=== PATIENT | male | born 1990 | race Hispanic/Latino ===

== ENCOUNTER 2018-08-17 13:02 | Emergency (ER) | payer OTHER ==
[2018-08-17 13:11] VITALS: BP 118/74; PULSE 64; RESP 18; TEMP 97.8; O2SAT 99
--- NOTE | 2018-08-17 14:19 | RAD ---
PROCEDURE: Left Foot Radiographs. HISTORY: left foot pain COMPARISON: None available. FINDINGS: BONES: No acute displaced fracture. JOINTS: No dislocation. SOFT TISSUES: Unremarkable. No evidence of radiopaque foreign body. OTHER FINDINGS: None. IMPRESSION: No acute displaced fracture, dislocation, or significant joint effusion identified. If symptoms persist, or if there is continued clinical concern, x-ray follow-up in 7-10 days should be considered.
--- NOTE | 2018-08-17 14:29 | C.PDOC ---
History Of Present Illness 28 y/o male presents to the ER complaining of left foot pain which began after he ran a marathon 2 days ago. Patient states that he has pain mainly in the outer aspect of the foot. Patient reports that there is no other joint involvement. Denies having direct trauma, falls, injuries, weakness, and numbness. Time Seen by Provider: 08/17/18 13:14 Chief Complaint (Nursing): Lower Extremity Problem/Injury History Per: Patient History/Exam Limitations: no limitations Onset/Duration Of Symptoms: Days Current Symptoms Are (Timing): Still Present Severity: Moderate Past Medical History Reviewed: Historical Data, Nursing Documentation, Vital Signs Vital Signs: Last Vital Signs Temp 97.8 F 08/17/18 13:08 Pulse 64 08/17/18 13:08 Resp 18 08/17/18 13:08 BP 118/74 08/17/18 13:08 Pulse Ox 99 08/17/18 13:08 - Medical History PMH: No Chronic Diseases Other Surgeries: Hx of surgeries Family History: States: No Known Family Hx - Social History Hx Alcohol Use: Yes Hx Substance Use: No - Immunization History Hx Tetanus Toxoid Vaccination: No Hx Influenza Vaccination: No Hx Pneumococcal Vaccination: No Review Of Systems Except As Marked, All Systems Reviewed And Found Negative. Musculoskeletal: Positive for: Foot Pain (left foot pain) Neurological: Negative for: Weakness, Numbness Physical Exam - Physical Exam Appears: Non-toxic, No Acute Distress Skin: Normal Color, Warm, Dry Head: Atraumatic, Normacephalic Eye(s): bilateral: Normal Inspection Nose: Normal Oral Mucosa: Moist Neck: Supple Chest: Symmetrical Extremity: Normal ROM, Tenderness (tenderness to left lateral foot mid metatarsal region), No Deformity, No Swelling, Other (achilles tendon of left foot is intact) Pulses: Left Dorsalis Pedis: Normal (DP/PT), Right Dorsalis Pedis: Normal (DP/PT) Neurological/Psych: Oriented x3, Normal Speech ED Course And Treatment O2 Sat by Pulse Oximetry: 99 (RA) Pulse Ox Interpretation: Normal - Other Rad X-Ray-Left Foot X-Ray: Viewed By Me, Read By Radiologist Interpretation: PROCEDURE: Left Foot Radiographs. HISTORY: left foot pain. COMPARISON: None available. FINDINGS: BONES: No acute displaced fracture. JOINTS: No dislocation. SOFT TISSUES: Unremarkable. No evidence of radiopaque foreign body. OTHER FINDINGS: None. IMPRESSION: No acute displaced fracture, dislocation, or significant joint effusion identified. If symptoms persist, or if there is continued clinical concern, x-ray follow-up in 7-10 days should be considered. Medical Decision Making Medical Decision Making: Impression: Foot Strain Plan: --Motrin PO --X-Ray- Left Foot Disposition Counseled Patient/Family Regarding: Studies Performed, Diagnosis, Need For Followup, Rx Given - Disposition Referrals: Podiatry Clinic [Outside] Disposition: HOME/ ROUTINE Disposition Time: 14:27 Condition: STABLE Additional Instructions: follow up with podiatry within 2 days rest, ice, elevate call to make an appointment take medication as needed for pain return to ER if symptoms worsens or progress Prescriptions: Naproxen [Naprosyn] 500 mg PO BID PRN #16 tab PRN Reason: Pain, Moderate (4-7) Instructions: Muscle Strain, Sprain (DC) Forms: General Discharge Instructions, [facility] (Japanese), Work Excuse - Clinical Impression Clinical Impression: Strain of foot - Scribe Statement The provider has reviewed the documentation as recorded by the Soha Omalley Provider Attestation: All medical record entries made by the Soha were at my direction and personally dictated by me. I have reviewed the chart and agree that the record accurately reflects my personal performance of the history, physical exam, medical decision making, and the department course for this patient. I have also personally directed, reviewed, and agree with the discharge instructions and disposition.
== END 2018-08-17 14:34 | disposition home or self-care (01) ==
LOC: C.ER 13:02
DX: S96.912A Strain of unspecified muscle and tendon at ankle and foot level, left foot, initial encounter (principal); X58.XXXA Exposure to other specified factors, initial encounter; Y93.02 Activity, running

== ENCOUNTER 2019-03-19 13:37 | Emergency (ER) | payer OTHER | END 2019-03-19 14:24 | disposition home or self-care (01) | LOC: C.ER 13:37 ==